=== PATIENT | male | born 1955 | race Caucasian/White ===

== ENCOUNTER 2021-04-19 16:48 | Emergency (ER) | payer MEDICARE ==
[~2021-04-19] VITALS: Ht 177.8 cm; Wt 79.0 kg
[~2021-04-19 16:48] MED LIST: ACET-2119 PO; FLUO20CA39 PO; IBUP-1051 PO; LISI20TA28 PO; PERP8TAB6 PO
[2021-04-19 16:51] VITALS: BP 151/74
--- NOTE | 2021-04-19 18:30 | NUR ---
not in lobclarisse 183
--- NOTE | 2021-04-19 19:15 | NUR ---
not in lobby third call
--- NOTE | 2021-04-19 20:14 | NUR ---
not in lobby 4 th call
== END 2021-04-19 20:58 | disposition left against medical advice (07) ==
LOC: ER 16:48
DX: Z00.8 Encounter for other general examination (principal); Z53.21 Procedure and treatment not carried out due to patient leaving prior to being seen by health care provider